=== PATIENT | male | born 1960 | race Caucasian/White ===

== ENCOUNTER 2021-03-01 08:42 | Observation (INO) | payer BC, OTHER ==
[~2021-03-01] VITALS: Ht 175.3 cm; Wt 79.8 kg
[~2021-03-01 08:42] MED LIST: IBUPROFEN 800800 MG PO; NORCO 5-325 TA1 EACH PO; TOBRAMYCIN SULFA5 ML OP
[2021-03-01 08:52] VITALS: BP 130/81
[2021-03-01] MEDS ORDERED: ADULT LOW DOSE81 MG PO (09:18)
[2021-03-01] MEDS ORDERED: PROTONIX40 M3 PO (09:19)
[2021-03-01 11:28] LABS: BASOPHILS 0.2 % (0.0-2.0)
[2021-03-01 11:30] LABS: HEMATOCRIT 49.9 % (42.0-52.0); HEMOGLOBIN 16.7 gm/dL (14.0-18.0); LYMPHOCYTES 6.4 % (24.0-44.0); MCH 28.8 pg (26.0-34.0); MCHC 33.4 g/dL (28.0-37.0); MONOCYTES 7.4 % (1.0-8.0); PLATELET COUNT 268 thou/uL (150-400); RDW 13.9 % (10.5-14.5); WBC 18.6 thou/uL (4.0-11.0)
[2021-03-01 11:31] LABS: CALCIUM 9.1 mg/dL (8.5-10.1); CREATININE 1.3 mg/dL (0.7-1.3)
[2021-03-01 11:37] LABS: ALBUMIN 3.8 g/dL (3.4-5.0); DIRECT BILIRUBIN 0.2 mg/dL (<0.1-0.2); TOTAL PROTEIN 7.8 g/dL (6.4-8.2)
--- NOTE | 2021-03-01 11:50 | EKG ---
[address] [address] ELECTROCARDIOGRAM REPORT Name: BERNARD AUGUSTE [facility] [id number] Admission: 03/01/21 Attend Phys: Discharge: Date of : 62 Report #: [id number] [facility] ED Test Date: 2021-03-01 Test Time: 10:48:06 Pat Name: BERNARD AUGUSTE Department: Room: Gender: M Warehouse Inventory Clerk: alirio : 1960 Requested By: Haleigh Gonzalez Order Number: [id number] MD: Jose Luis Baldwin Measurements Intervals [place] Rate: 84 P: 66 SC: 159 QRS: 46 QRSD: 97 T: 41 QT: 374 QTc: 443 Interpretive Statements Sinus rhythm Compared to ECG 11/03/1997 16:00:00 No significant changes Electronically Signed On 03-01-2021 11:50:21 CDT by Jose Luis Baldwin [email or web address] <ELECTRONICALLY SIGNED> By: Jose Luis Baldwin MD 03/01/21 1150 1048 1048 Jose Luis Baldwin MD /EPI
[2021-03-01 12:40] LABS: URINE BILIRUBIN NEGATIVE (Negative); URINE BLOOD NEGATIVE (Negative); URINE CLARITY CLEAR; URINE COLOR YELLOW; URINE GLUCOSE-RANDOM* NEGATIVE (Negative); URINE KETONES NEGATIVE (Negative); URINE LEUKOCYTES-REFLEX NEGATIVE (Negative); URINE NITRITE-REFLEX NEGATIVE (Negative); URINE PROTEIN (DIPSTICK) NEGATIVE (Negative); URINE SPECIFIC GRAVITY <= 1.005 (1.005-1.035); URINE UROBILINOGEN 0.2 E.U./dl (0.2-1.0)
[2021-03-01 13:27] VITALS: BP 132/65
[2021-03-01 15:39] VITALS: BP 124/76
--- NOTE | 2021-03-01 19:44 | NUR ---
Received pt from the OR , lap sites c/d/i. Pain is managed with medications vs stable. Admission requirements completed, med req done and validated. POC followed with no signs or verbalizations of distress noted. endorsed to the night nurse.
[2021-03-01 19:45] VITALS: BP 139/76
[2021-03-02 00:15] VITALS: BP 125/82
[2021-03-02 05:02] VITALS: BP 104/67
--- NOTE | 2021-03-02 05:37 | NUR ---
ASSUMED CARE OF PT AT SHIFT CHANGE. PT ISAOX4 AND LETS NEEDS BE KNOWN. PT IS UP AD TROY. ASSESSMENT CHARTED. SCDS IN PLACE. 3X LAP SITES ARE C/D/I. PRN PAIN MEDS GIVEN. 2L O2 VIA NC STARTED. ABX TREATMENT CONTINUED. PT WAS ABLE TO GET COMFORTABLE AND SLEEP PART OF THE SHIFT. VSS AND NO S/S OF ACUTE DISTRESS. WILL CONTINUE TO MONITOR FOR CHANGES.
[2021-03-02 07:46] VITALS: BP 116/80
--- NOTE | 2021-03-02 16:53 | NUR ---
PT ADMITTED RELATED TO APPENDICITIS. PT IS POD #1 FROM LAP APPY 03/01. CM REVIEWED CHART AND SPOKE WITH CARE TEAM. CM MET WITH PT AND SPOUSE AT BEDSIDE THIS DAY. PT INDICATED HE LIVES IN AN APPARTMENT WITH HIS SPOUSE WITH ELEVATOR ACCESS. 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 PT INDICATED HAS PCP AND HEALTH INSURANCE. PT INDICTED HE PLANS TO DC HOME TOMORROW TO SELF CARE. CM FOLLOWING INDICATED WITH DC PLANNING.
[2021-03-02 19:20] VITALS: BP 120/79
--- NOTE | 2021-03-03 01:42 | NUR ---
ASSUMED CARE OF PT AT SHIFT CHANGE. PT IS AOX4 AND LETS NEEDS BE KNOWN. PT IS UP AD TROY. POST OP DAY 2; 2X LAP SITES ARE C/D/I. PT REPORED SOME ABD PAIN; PRN PAIN MEDS GIVEN. 2L O2 VIA NC CONTINUED. PT REPORTS PASSING GAS. PT DENIED NSUSEA AND IS TOLERATING PO DIET. ABX TREATMENT CONTINUED. SCDS IN PLACE. PT WAS ABLE TO GET COMFORTABLE AND SLEEP PART OF THE SHIFT. VSS AND NO S/S OF ACUTE DISTRESS. WILL CONTINUE TO MONITOR FOR CHANGES.
[2021-03-03 05:07] VITALS: BP 109/60
[2021-03-03 07:27] VITALS: BP 104/64
[2021-03-03] MEDS ORDERED: NORCO5 PO (09:49)
[2021-03-03] MEDS ORDERED: AUGMENTIN 875-1 EACH PO (09:49)
[2021-03-03] MEDS ORDERED: PERCOCET 5-3251 EACH PO (09:53)
[2021-03-03 10:28] VITALS: BP 104/64
--- NOTE | 2021-03-03 13:42 | NUR ---
ORDERS RECEIVED FOR OT EVAL AND TREAT. SPOKE WITH RN, STATES PT. IS UP AD TROY IN THE ROOM. SPOKE WITH PT., EXPLAINED ROLE OF OT. PT. DECLINES FORMAL EVAL, STATES HE HAS NO CONCERNS ABOUT D/C'ING HOME INDEPENDENTLY. PT. ALSO ASKS THERAPIST TO TELL P.T. HE DOES NOT WANT A P.T. EVAL EITHER. OT COMMUNICATED TO P.T.
--- NOTE | 2021-03-03 18:02 | NUR ---
Assumed pt care this am vs stable. diet and medications tolerated well. Pain is managed with medications paartial relief is noted. surgical sites are c/d/i. POC followed with no signs or verbalizations of distress noted. DC instructions and prescriptions given to the pt and . IV removed, pt is now dc.
--- NOTE | 2021-03-04 07:25 | O ---
[facility] [place] [address] OPERATIVE REPORT Name: BERNARD AUGUSTE Room #: 450-P [facility] Hema Padgett#: [id number] Admission: 03/01/21 Attend Phys: Marvin Guillaume, Discharge: 03/03/21 Date of : 62 Report #: [id number] THIS REPORT FOR: cc: Amina Walden MD, Paula V. MD Patterson,Marvin Jordan MD ~ DATE OF SERVICE: 03/01/2021 PREOPERATIVE DIAGNOSIS: Acute appendicitis. POSTOPERATIVE DIAGNOSIS: Acute perforated appendicitis. OPERATION: Laparoscopic appendectomy. SURGEON: Marvin Guillaume MD ANESTHESIA: General. ESTIMATED BLOOD LOSS: Minimal. SPECIMENS: Appendix. DESCRIPTION OF PROCEDURE: After informed consent was obtained, the patient was brought to the operating room and placed supine. SCDs were placed and working, preoperative antibiotics were administered, general anesthesia was induced. The abdomen was prepped and draped in the usual sterile fashion. A 10 mm incision was made below the umbilicus. Fascia was incised and a trocar was placed. Pneumoperitoneum was established. Right upper quadrant and left lower quadrant mm ports were placed. The appendix was grasped and retracted anteriorly. A window was made in the mesoappendix. The mesoappendix was ligated using LigaSure device. The base of the appendix was then stapled off with a RODOLFO blue load stapler. The appendix was perforated, although just slightly. The appendix was placed into an Endopouch and removed. Fascia was then closed with a [id number] 0 Vicryl. Skin was closed with 4-0 Monocryl. Incisions were dressed with Steri-Strips. COMPLICATIONS: None. DISPOSITION: The patient was taken to recovery in satisfactory condition. <ELECTRONICALLY SIGNED> By: Marvin Guillaume MD 03/04/21 0725 1337 1348 Marvin Guillaume MD /nt
--- NOTE | 2021-03-04 16:06 | PATH ---
[facility] [address] [place] [address] PATHOLOGY RPT PROCEDURE Name: BERNARD AUGUSTE Room #: 450-P [facility] Hema M.R.#: [id number] Admission: 03/01/21 Date of : 62 Discharge: 03/03/21 Report #: [id number] Path Case #: [id number] [facility] Accession Number: [id number] . 01 Material submitted: . appendix - APPENDIX . 02 Diagnosis: Appendix, appendectomy: Marked acute appendicitis along with marked acute serositis. (IUV:pit; 03/04/2021) [facility] 03/04/2021 135 Local . 02 Electronically signed: . Ghazala Welsh MD, Pathologist NPI- [id number] . 01 Gross description: . Fixative: Formalin Labeled: Appendix Appendix length: 7.4 cm Appendix diameter: 0.9 cm Mesoappendix: Up to 1.4 cm Proximal margin: Stapled Serosa: Dark em-cabrera with a perforation at the mid appendix Cut surface: Pinpoint to dilated lumen Luminal diameter: Up to 1.2 cm Perforation: Yes, near mid appendix Lesions/abnormalities: None identified A1 Proximal margin (inked black) and distal tip, bisected A2 Mid appendix([facility]; 03/03/2021) [facility] 03/03/2021 1334 Local . 02 Pathologist provided ICD-10: K35.80, K65.8 . 02 CPT . [id number] Specimen Comment: A courtesy copy of this report has been sent to [phone] Specimen Comment: Report sent to Performed at: [address] [id number] MD Enrique Centeno MD Phone: [phone] Performed at: [address] [id number] [address] [address] PATHOLOGY RPT PROCEDURE Name: BERNARD AUGUSTE Room #: 450-P [facility] Hema Padgett#: [id number] Admission: 03/01/21 Date of : 62 Discharge: 03/03/21 Report #: [id number] Path Case #: [id number] MD Ghazala Welsh MD Phone: [phone]
== END 2021-03-03 18:05 | disposition short-term general hospital (02) ==
LOC: ER 08:42 → 4W 12:44 → EROBS 12:44 → 4W 13:27 → TBA 14:38 → 4W 15:18
PROVIDERS: Emergency Medicine; ADMIT Surgery; ATTEND Surgery
DX: K35.32 Acute appendicitis with perforation, localized peritonitis, and gangrene, without abscess (principal); Z20.822 Contact with and (suspected) exposure to COVID-19; Z79.82 Long term (current) use of aspirin; Z79.899 Other long term (current) drug therapy; Z87.891 Personal history of nicotine dependence
CPT/HCPCS: 50101; 50411; 50555; 50739; 50740; 51489; 52265; 52266; 53307; 53312; 53314; 56525; 56526; 58574; 58586; 58867; 62110; 62900; 70005

== ENCOUNTER 2021-04-12 09:58 | Emergency (ER) | payer BC, OTHER ==
[~2021-04-12] VITALS: Ht 175.3 cm; Wt 78.0 kg
[~2021-04-12 09:58] MED LIST changes: +ADULT LOW DOSE81 MG PO; +AUGMENTIN 875-1 EACH PO; +NORCO5 PO; +PERCOCET 5-3251 EACH PO; +PROTONIX40 M3 PO
[2021-04-12 10:10] VITALS: BP 145/89
[2021-04-12] MEDS ORDERED: PERCOCET 5-3251 EACH PO (11:01)
== END 2021-04-12 11:16 | disposition home or self-care (01) ==
LOC: ER 09:58
DX: S52.124A Nondisplaced fracture of head of right radius, initial encounter for closed fracture (principal); S63.601A Unspecified sprain of right thumb, initial encounter; Z79.1 Long term (current) use of non-steroidal anti-inflammatories (NSAID); Z79.899 Other long term (current) drug therapy; Z79.82 Long term (current) use of aspirin; W18.30XA Fall on same level, unspecified, initial encounter; Y93.89 Activity, other specified; Y92.89 Other specified places as the place of occurrence of the external cause; Y99.8 Other external cause status